=== PATIENT | male | born 1990 | race Asian ===

== ENCOUNTER 2020-04-03 21:43 | Emergency (ER) | payer OTHER ==
[2020-04-03 21:52] VITALS: BP 130/90; PULSE 86; TEMP 97.2; BMI 29.0
[2020-04-03] MEDS ORDERED: ACETAMINOPHEN 500 MG TABLET (FP) PO ONE (22:11)
[2020-04-03] MEDS ORDERED: ACETAMINOPHEN 325 MG TABLET (FP) ONE (22:13)
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
== END 2020-04-03 23:30 | disposition home or self-care (01) ==
LOC: JERFT 21:43
PROC: 0HQ1XZZ Repair Face Skin, External Approach (ICD-10-PCS; principal; 2020-04-03)
DX: S01.81XA Laceration without foreign body of other part of head, initial encounter (principal); T76.11XA Adult physical abuse, suspected, initial encounter; Y04.2XXA Assault by strike against or bumped into by another person, initial encounter
CPT/HCPCS: 99283-25

== ENCOUNTER 2020-04-13 18:27 | Emergency (ER) | payer OTHER ==
--- NOTE | 2020-04-13 18:39 | PDOC ---
Suture Removal/Wound Check HPI - History of Present Illness Stated Complaint: REMOVE STITCHES Time Seen by Provider: 04/13/20 18:28 History Source: Yes: Patient Exam Limitations: Yes: No Limitations Treated at: [facility] [place] Date of Last ED visit: 04/03/20 - Previous ED Treatment Type of procedure performed on last visit: Yes: Laceration Repair Tetanus Immunization: Yes: Given at last ED visit Antibiotics Prescribed: No Past History - Medical History Allergies/Adverse Reactions: Allergies Allergy/AdvReac Type Severity Reaction Status Date / Time No Known Allergies Allergy Verified 04/13/20 18:36 Home Medications: Ambulatory Orders Azithromycin [Zithromax Z-CORINA (5 DAYS) -] 250 mg PO ASDIR #6 tablet 07/04/14 COPD: No - Psycho-Social/Smoking History Smoking History: Never smoked Suture Removal/Wound Check PE - Physical Exam Laceration/Wound Check Symptoms: reports: None Current Severity Level: None Maximum Severity Level: None Pain Localization: None Location of Laceration/Wound: right: Eye (eyebrow) Pain Radiation: None *Review of Systems - Review of Systems Able to Perform ROS?: Yes All Other Systems: Reviewed and Negative *Physical Exam - Vital Signs Last Vital Signs Temp Pulse Resp BP Pulse Ox 98 F 85 18 128/81 98 04/13/20 18:34 04/13/20 18:34 04/13/20 18:34 04/13/20 18:34 04/13/20 18:34 - Physical Exam Integumentary: positive: Normal Color, Dry, Warm, Other (right eyebrow suture line well healed. [address] ) Medical Decision Making - Medical Decision Making 04/13/20 18:39 A/P: 29yo man with visit for suture removal Wound well healed. 6 sutures removed without incident discharge Discharge - Discharge Information Problems reviewed: Yes Clinical Impression/Diagnosis: Visit for suture removal Condition: Stable Disposition: HOME - Admission No - Follow up/Referral - Patient Discharge Instructions Patient Printed Discharge Instructions: DI for Suture Removal - Post Discharge Activity
[2020-04-13 18:40] VITALS: BP 128/81; PULSE 85; TEMP 98; BMI 29.0
== END 2020-04-13 18:47 | disposition home or self-care (01) ==
LOC: JER 18:27
DX: Z48.02 Encounter for removal of sutures (principal)
CPT/HCPCS: 99281-25

== ENCOUNTER 2020-05-07 05:07 | Emergency (ER) | payer OTHER ==
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
[2020-05-07 05:35] VITALS: BP 121/76; PULSE 83; TEMP 98; BMI 29.0
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
== END 2020-05-07 06:59 | disposition home or self-care (01) ==
LOC: JER 05:07
DX: Z48.00 Encounter for change or removal of nonsurgical wound dressing (principal)
CPT/HCPCS: 99281-25

== ENCOUNTER 2021-07-15 22:49 | Emergency (ER) | payer OTHER ==
[2021-07-15 22:57] VITALS: BP 121/64; PULSE 75; TEMP 97.9; BMI 29.2
[2021-07-15] MEDS ORDERED: METHOCARBAMOL 500 MG TABLET PO ONE (23:52)
[2021-07-15] MEDS ORDERED: IBUPROFEN 600 MG TABLET (FP) PO ONE (23:52)
[2021-07-16] MEDS ORDERED: METHOCARBAMOL 500 MG TABLET ONE (00:03)
[2021-07-16] MEDS ORDERED: IBUPROFEN 600 MG TABLET (FP) PO ONE (00:03)
[2021-07-16] MEDS ORDERED: LIDOCAINE 5% TOPICAL PATCH TP ONE (00:11)
[2021-07-16] MEDS ORDERED: LIDOCAINE 5% TOPICAL PATCH ONE (00:12)
[2021-07-16] MEDS ORDERED: LIDOCAINE PATCH REMOVAL MC SCH (22:00)
== END 2021-07-16 01:04 | disposition home or self-care (01) ==
LOC: FER 22:49
DX: S13.4XXA Sprain of ligaments of cervical spine, initial encounter (principal); G62.9 Polyneuropathy, unspecified; V49.9XXA Car occupant (driver) (passenger) injured in unspecified traffic accident, initial encounter
CPT/HCPCS: 99283-25